=== PATIENT | female | born 1995 | race Two or more races ===

== ENCOUNTER → 2020-11-14 | Outpatient (CLI) | payer SELFPAY | LOC: M LABSMTC 10:24 | PROVIDERS: ATTEND Pediatrics | DX: Z20.822 Contact with and (suspected) exposure to COVID-19 (principal) ==

== ENCOUNTER → 2021-08-22 | Outpatient (CLI) | payer OTHER ==
[2021-08-22 10:43] LABS: HEMATOCRIT 33.6 % (36.0-47.0); HEMOGLOBIN 11.4 g/dl (12.0-15.5); MEAN CORPUSCULAR HEMOGLOBIN 32.6 pg (27.0-33.0); MEAN CORPUSCULAR HGB CONC 33.9 g/dl (32.0-36.5); PLATELET COUNT, AUTOMATED 245 10^3/uL (150-450); WHITE BLOOD COUNT 9.7 10^3/uL (4.0-10.0)
[2021-08-22 15:19] LABS: GC DNA AMPLIFICATION NEGATIVE (NEGATIVE)
== END ==
LOC: M PLALAB 08:15
PROVIDERS: ATTEND Advanced Practice Midwife
DX: Z36.9 Encounter for antenatal screening, unspecified (principal); Z3A.21 21 weeks gestation of pregnancy

== ENCOUNTER → 2021-10-30 | Outpatient (REF) | payer OTHER, MEDICAID | LOC: M SFHCWAGY 17:05 | PROVIDERS: ATTEND Obstetrics & Gynecology | DX: Z34.03 Encounter for supervision of normal first pregnancy, third trimester (principal) ==

== ENCOUNTER 2021-11-22 19:58 | Inpatient (IN) | payer OTHER, MEDICAID ==
[~2021-11-22] VITALS: Ht 165.1 cm; Wt 90.7 kg
[2021-11-22 20:23] VITALS: BP 132/76
[2021-11-22 21:26] VITALS: BP 128/72
[2021-11-22] MEDS ORDERED: PENICILLIN G POTASSIUM IV 5 MU in D5W MINI-BAG PLUS 100 ML IV STA (21:32)
[2021-11-22] MEDS ORDERED: TRANEXAMIC ACID INJection 1,000 MG in NS 100 ML IV PRN (21:35)
[2021-11-22] MEDS ORDERED: OXYTOCIN DRIP 30 UNITS in IV 1 EA IV SCH (21:35)
[2021-11-22] MEDS ORDERED: METHYLERGONOVINE MALEATE 0.2 MG/ML VIAL (J2210) IM PRN (21:35)
[2021-11-22] MEDS ORDERED: CARBOPROST TROMETHAMINE 250 MCG/ML AMP IM PRN (21:35)
[2021-11-22] MEDS ORDERED: LIDOCAINE 1% MDV 20ML VIAL INFIL PRN (21:35)
[2021-11-22] MEDS: LR 1,000 ML IV SCH (21:58)
[2021-11-22 22:10] LABS: HEMATOCRIT 37.2 % (36.0-47.0); HEMOGLOBIN 12.7 g/dl (12.0-15.5); MEAN CORPUSCULAR HEMOGLOBIN 32.2 pg (27.0-33.0); MEAN CORPUSCULAR HGB CONC 34.1 g/dl (32.0-36.5); MEAN CORPUSCULAR VOLUME 94.2 fl (80.0-96.0); PLATELET COUNT, AUTOMATED 243 10^3/uL (150-450); RED BLOOD COUNT 3.95 10^6/uL (4.00-5.40); WHITE BLOOD COUNT 10.3 10^3/uL (4.0-10.0)
[2021-11-23] VITALS (54 sets, daily range): BP systolic 91–195; BP diastolic 50–86
[2021-11-23] MEDS: PENICILLIN G POTASSIUM IV 2.5 MU in IV 1 EA IV SCH ×3 (02:00→09:58)
[2021-11-23] MEDS ORDERED: PROMETHAZINE INJ 25 MG/ML VIAL (J2550) IV ONE (04:15)
[2021-11-23] MEDS ORDERED: BUTORPHANOL 2 MG/ML INJ (J0595) IV ONE (04:15)
[2021-11-23] MEDS: LR 1,000 ML IV SCH ×3 (06:00→09:26)
[2021-11-23] MEDS ORDERED: FENTANYL 2MCG/ML ROPIVACAINE 0.2% IN 0.9% NACL 100ML IVBAG As Ordered ONE (07:26)
[2021-11-23] MEDS ORDERED: LACTATED RINGER'S 1000 ML IV PRN (08:35)
[2021-11-23] MEDS ORDERED: diphenhydrAMINE 50MG/ML VIAL (J1200) IV PRN (08:35)
[2021-11-23] MEDS ORDERED: ONDANSETRON 4MG/2ML VIAL IV PRN (08:35)
[2021-11-23] MEDS ORDERED: EPIDURAL COMMENT XX SCH (08:35)
[2021-11-23] MEDS ORDERED: NALOXONE INJ 0.4MG/1ML VIAL (J2310 PER 1MG) IV PRN (08:35)
[2021-11-23] MEDS ORDERED: EPIDURAL/PCA KEYS XX PRN (08:35)
[2021-11-23] MEDS ORDERED: REFRIGERATOR IV KEYS XX PRN (08:35)
[2021-11-23] MEDS ORDERED: FENTANYL/ROPIVACAINE/NACL BAG 100 ML EPIDURAL SCH (08:35)
[2021-11-23] MEDS: ePHEDrine SULFATE 25 MG/5 ML(5MG/ML) SYRINGE IV PRN ×3 (09:06→09:47)
[2021-11-23] MEDS ORDERED: MOM 30ML SUSPENSION UDC PO PRN (13:35)
[2021-11-23] MEDS ORDERED: ACETAMINOPHEN TAB 650MG DOSE (2X325MG) PO PRN (13:35)
[2021-11-23] MEDS ORDERED: DIBUCAINE 1% OINTMENT 30GM TOP PRN (13:35)
[2021-11-23] MEDS ORDERED: ACETAMINOPHEN 500 MG TAB PO PRN (13:35)
[2021-11-23] MEDS ORDERED: DOCUSATE SODIUM 100MG CAPSULE PO PRN (13:35)
[2021-11-23] MEDS ORDERED: OXYTOCIN DRIP 30 UNITS in IV 1 EA IV SCH (13:35)
[2021-11-23] MEDS ORDERED: RHOGAM 300 MCG (1500 IU) INJ (J2790) IM SCH (13:35)
[2021-11-23] MEDS ORDERED: MEASLES,MUMPS,RUBELLA VACCINE INJ (MMR-II) (90707) SC SCH (13:35)
[2021-11-23] MEDS ORDERED: IBUPROFEN 800 MG TAB PO PRN (13:35)
[2021-11-23] MEDS ORDERED: METHYLERGONOVINE MALEATE 0.2 MG TAB PO PRN (13:35)
[2021-11-23] MEDS: IBUPROFEN 600MG TAB PO PRN (17:45)
[2021-11-24 06:00] VITALS: BP 119/64
[2021-11-24] MEDS: PRENATAL VITAMINS CHEWABLE TABLET PO SCH (08:00)
[2021-11-24 18:00] VITALS: BP 116/67
[2021-11-25 06:00] VITALS: BP 105/54
[2021-11-25] MEDS: PRENATAL VITAMINS CHEWABLE TABLET PO SCH (09:26)
[2021-11-25] MEDS: IBUPROFEN 600MG TAB PO PRN (09:28)
[2021-11-25] MEDS ORDERED: ANUSOL HC CREAM 30GM TOP PRN (10:00)
[2021-11-25] MEDS ORDERED: PROC1CRE5 TOP (10:49)
== END 2021-11-25 15:50 | disposition home or self-care (01) | DRG 560 ==
LOC: M LDO 19:58 → M LDI 21:18 → M OBS 11-23 15:15
PROVIDERS: ADMIT Obstetrics & Gynecology; ATTEND Obstetrics & Gynecology
PROC: 10E0XZZ Delivery of Products of Conception, External Approach (ICD-10-PCS; principal; 2021-11-23)
PROC: 0HQ9XZZ Repair Perineum Skin, External Approach (ICD-10-PCS; 2021-11-23)
DX: O99.824 Streptococcus B carrier state complicating childbirth (principal); Z37.0 Single live birth; O70.0 First degree perineal laceration during delivery; Z3A.38 38 weeks gestation of pregnancy

== ENCOUNTER → 2022-05-07 | Outpatient (REF) | payer OTHER, MEDICAID ==
[~2022-05-07] MED LIST: PROC1CRE5 TOP
== END ==
LOC: M PLALAB 16:23
PROVIDERS: ATTEND Obstetrics & Gynecology
DX: Z12.4 Encounter for screening for malignant neoplasm of cervix (principal)

== ENCOUNTER → 2022-11-18 | Outpatient (CLI) | payer OTHER ==
[2022-11-18 15:19] LABS: HEMATOCRIT 35.2 % (36.0-47.0); HEMOGLOBIN 11.8 g/dl (12.0-15.5); MEAN CORPUSCULAR HEMOGLOBIN 31.5 pg (27.0-33.0); MEAN CORPUSCULAR HGB CONC 33.5 g/dl (32.0-36.5); MEAN CORPUSCULAR VOLUME 93.9 fl (80.0-96.0); PLATELET COUNT, AUTOMATED 244 10^3/uL (150-450); RED BLOOD COUNT 3.75 10^6/uL (4.00-5.40); WHITE BLOOD COUNT 7.8 10^3/uL (4.0-10.0)
[2022-11-18 16:13] LABS: HIV 1&2 SCREEN CENTAUR NEGATIVE (NEGATIVE)
[2022-11-18 16:41] LABS: GC DNA AMPLIFICATION NEGATIVE (NEGATIVE)
== END ==
LOC: M LAB 14:34
PROVIDERS: ATTEND Specialist
DX: Z34.81 Encounter for supervision of other normal pregnancy, first trimester (principal)

== ENCOUNTER → 2022-12-26 | Outpatient (CLI) | payer OTHER | LOC: M WHC 14:13 | PROVIDERS: ATTEND Obstetrics & Gynecology | DX: Z34.92 Encounter for supervision of normal pregnancy, unspecified, second trimester (principal) ==

== ENCOUNTER → 2023-02-04 | Outpatient (CLI) | payer OTHER, MEDICAID ==
[2023-02-04 15:43] LABS: HEMATOCRIT 34.4 % (36.0-47.0); HEMOGLOBIN 11.7 g/dl (12.0-15.5); MEAN CORPUSCULAR VOLUME 96.9 fl (80.0-96.0); PLATELET COUNT, AUTOMATED 230 10^3/uL (150-450); RED BLOOD COUNT 3.55 10^6/uL (4.00-5.40)
[2023-02-04 17:24] LABS: GC DNA AMPLIFICATION NEGATIVE (NEGATIVE)
== END ==
LOC: M PLALAB 13:19
PROVIDERS: ATTEND Advanced Practice Midwife
DX: Z34.92 Encounter for supervision of normal pregnancy, unspecified, second trimester (principal)

== ENCOUNTER → 2023-04-25 | Outpatient (REF) | payer OTHER, MEDICAID | LOC: M PLALAB 07:39 | PROVIDERS: ATTEND Advanced Practice Midwife | DX: Z34.80 Encounter for supervision of other normal pregnancy, unspecified trimester (principal) ==

== ENCOUNTER 2023-05-17 13:35 | Inpatient (IN) | payer OTHER, MEDICAID ==
[~2023-05-17] VITALS: Ht 165.1 cm; Wt 89.9 kg
[2023-05-17 13:55] VITALS: BP 132/78
[2023-05-17] MEDS ORDERED: PRENTAB9 PO (14:01)
[2023-05-17] MEDS ORDERED: HOME MED LIST COMPLETE! XX SCH (14:10)
[2023-05-17] MEDS ORDERED: TRANEXAMIC ACID INJection 1,000 MG in NS 100 ML IV PRN (14:25)
[2023-05-17] MEDS ORDERED: CARBOPROST TROMETHAMINE 250 MCG/ML AMP IM PRN (14:25)
[2023-05-17] MEDS ORDERED: LIDOCAINE 1% MDV 20ML VIAL INFIL PRN (14:25)
[2023-05-17] MEDS ORDERED: METHYLERGONOVINE MALEATE 0.2MG/ML 1ML VIAL IM PRN (14:25)
[2023-05-17] MEDS ORDERED: OXYTOCIN DRIP 30 UNITS in IV 1 EA IV PRN (14:25)
[2023-05-17] MEDS: miSOPROStol 50MCG 1/2 TABLET PO SCH ×3 (15:06→23:16)
[2023-05-17 15:10] VITALS: BP 111/71
[2023-05-17 15:11] LABS: HEMATOCRIT 34.5 % (36.0-47.0); HEMOGLOBIN 11.7 g/dl (12.0-15.5); MEAN CORPUSCULAR HEMOGLOBIN 32.4 pg (27.0-33.0); MEAN CORPUSCULAR HGB CONC 33.9 g/dl (32.0-36.5); MEAN CORPUSCULAR VOLUME 95.6 fl (80.0-96.0); PLATELET COUNT, AUTOMATED 211 10^3/uL (150-450); RED BLOOD COUNT 3.61 10^6/uL (4.00-5.40); WHITE BLOOD COUNT 8.1 10^3/uL (4.0-10.0)
[2023-05-17 16:12] VITALS: BP 119/57
[2023-05-17 17:14] VITALS: BP 121/64
[2023-05-17 19:10] VITALS: BP 125/61
[2023-05-17 23:16] VITALS: BP 134/62
[2023-05-18] VITALS (21 sets, daily range): BP systolic 103–148; BP diastolic 56–85; O2SAT 98–100
[2023-05-18] MEDS: miSOPROStol 50MCG 1/2 TABLET PO SCH (03:18)
[2023-05-18] MEDS ORDERED: diphenhydrAMINE 50MG/ML VIAL IV PRN (06:45)
[2023-05-18] MEDS ORDERED: EPIDURAL/PCA KEYS XX PRN (06:45)
[2023-05-18] MEDS ORDERED: NALOXONE INJ 0.4MG/1ML VIAL IV PRN (06:45)
[2023-05-18] MEDS ORDERED: LR 500 ML IV PRN (06:45)
[2023-05-18] MEDS ORDERED: ONDANSETRON 4MG 2ML VIAL IV PRN (06:45)
[2023-05-18] MEDS ORDERED: ePHEDrine SULFATE 25 MG/5 ML(5MG/ML) SYRINGE IVP PRN (06:45)
[2023-05-18] MEDS ORDERED: OXYTOCIN DRIP 30 UNITS in IV 1 EA IV SCH (06:55)
[2023-05-18] MEDS: FENTANYL/ROPIVACAINE/NACL BAG 100 ML EPIDURAL SCH ×2 (08:07→15:09)
[2023-05-18] MEDS: LR 1,000 ML IV SCH ×2 (09:17→14:55)
[2023-05-18] MEDS ORDERED: ACETAMINOPHEN TAB 650MG DOSE (2X325MG) PO PRN (17:25)
[2023-05-18] MEDS ORDERED: METHYLERGONOVINE MALEATE 0.2 MG TAB PO PRN (17:25)
[2023-05-18] MEDS ORDERED: ACETAMINOPHEN 500 MG TAB PO PRN (17:25)
[2023-05-18] MEDS ORDERED: DIBUCAINE 1% OINTMENT 30GM TOP PRN (17:25)
[2023-05-18] MEDS ORDERED: IBUPROFEN 600MG TAB PO PRN (17:25)
[2023-05-18] MEDS ORDERED: DOCUSATE SODIUM 100MG CAPSULE PO PRN (17:25)
[2023-05-18] MEDS ORDERED: RHOGAM 300MCG (1500IU) INJ IM SCH (17:25)
[2023-05-18] MEDS ORDERED: IBUPROFEN 800 MG TAB PO PRN (17:25)
[2023-05-18] MEDS: PRENATAL VITAMINS CHEWABLE TABLET PO SCH (17:28)
[2023-05-19 06:00] VITALS: BP 125/55; O2SAT 97
[2023-05-19] MEDS: PRENATAL VITAMINS CHEWABLE TABLET PO SCH (08:18)
[2023-05-19] MEDS ORDERED: ACET-683 PO (15:07)
[2023-05-19] MEDS ORDERED: IBUP80TA PO (15:07)
[2023-05-20] MEDS ORDERED: MEASLES,MUMPS,RUBELLA VACCINE INJ (MMR-II) SC.IMMUN ONE (09:00)
== END 2023-05-19 16:40 | disposition home or self-care (01) | DRG 560 ==
LOC: M LDI 13:35 → M OBS 05-18 12:10
PROVIDERS: ADMIT Advanced Practice Midwife; ATTEND Advanced Practice Midwife
PROC: 3E0DXGC Introduction of Other Therapeutic Substance into Mouth and Pharynx, External Approach (ICD-10-PCS; 2023-05-17)
PROC: 10E0XZZ Delivery of Products of Conception, External Approach (ICD-10-PCS; principal; 2023-05-18)
DX: O80 Encounter for full-term uncomplicated delivery (principal); Z37.0 Single live birth; Z3A.39 39 weeks gestation of pregnancy